=== PATIENT | male | born 1975 | race Caucasian/White ===

== ENCOUNTER 2019-01-08 21:43 | Emergency (ER) | payer SELFPAY ==
[2019-01-08] MEDS ORDERED: NS 0.9% 1000 ML** 2,000 ML IV ONE (22:44)
[2019-01-08] MEDS ORDERED: Morphine INJ* 10 MG/ML 1 ML CARPUJECT IV ONE (22:44)
[2019-01-08] MEDS ORDERED: Morphine 10 MG/ML VIAL (1 ml) IV ONE (23:00)
[2019-01-08 23:06] LABS: Hematocrit 43 % (42-52); Hemoglobin 14.3 g/dL (14.0-18.0); Mean Corpuscular HGB Conc 33 g/dL (31-36); Mean Corpuscular Hemoglobin 30 pg (27-31); Mean Corpuscular Volume 90 fL (80-94); Mean Platelet Volume 7.7 fL (7.4-10.4); Platelet Count 228 10^3/uL (150-450); Red Blood Count 4.76 10^6 /uL (4.18-5.48); Red Cell Distribution Width 14 % (10-15); White Blood Count 16.2 10^3/uL (3.5-10.8)
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
[2019-01-08 23:23] LABS: Albumin 4.5 g/dL (3.2-5.2); Albumin/Globulin Ratio 1.7 (1-3); BUN/Creatinine Ratio 17.7 (8-20); Calcium 9.7 mg/dL (8.6-10.3); EGFR African American 86.5 (>60); EGFR Non-African American 71.5 (>60); Globulin 2.6 g/dL (2-4); Potassium 4.1 mmol/L (3.5-5.0); Total Bilirubin 0.3 mg/dL (0.2-1.0); Total Protein 7.1 g/dL (6.4-8.9)
[2019-01-08] MEDS ORDERED: Iohexol 300* (CONTRAST) 10 ML SDV IV ONE (23:32)
[2019-01-08 23:48] LABS: ABS Basophils 0.1 10^3/ul (0-0.2); ABS Eosinophils 0.1 10^3/ul (0-0.6); ABS Lymphocytes 1.1 10^3/ul (1.0-4.8); ABS Monocytes 0.8 10^3/ul (0-0.8); ABS Neutrophils 14.1 10^3/ul (1.5-7.7); Eosinophil % 0.5 %; Lymphocyte % 7.1 %
[2019-01-09] MEDS ORDERED: Morphine 4 MG/ML VIAL (1 ml) 4 MG/ML VIAL IV ONE (00:04)
[2019-01-09] MEDS ORDERED: LORazepam TAB(*) 1 MG PO ONE (00:04)
[2019-01-09 00:29] LABS: Urine Appearance Cloudy; Urine Bilirubin Negative (Negative); Urine Blood Negative (Negative); Urine Color Yellow; Urine Glucose Negative (Negative); Urine Ketones Negative (Negative); Urine Nitrite Negative (Negative); Urine Protein Negative (Negative); Urine Specific Gravity 1.017 (1.010-1.030); Urine Urobilinogen Negative (Negative)
[2019-01-09] MEDS ORDERED: oxyCODONE TAB* 5 MG TAB PO ONE (04:34)
[2019-01-09 04:51] VITALS: BP 122/74
== END 2019-01-09 04:50 | disposition home or self-care (01) ==
LOC: ED 21:43
DX: S20.212A Contusion of left front wall of thorax, initial encounter (principal); S20.211A Contusion of right front wall of thorax, initial encounter; F17.210 Nicotine dependence, cigarettes, uncomplicated; V18.2XXA Unspecified pedal cyclist injured in noncollision transport accident in nontraffic accident, initial encounter; Y93.55 Activity, bike riding; Y92.482 Bike path as the place of occurrence of the external cause
CPT/HCPCS: 36415; 71260; 74177; 80053; 81003; 83605; 85025; 85060; A9270-GY; J2270; Q9967